=== PATIENT | female | born 1965 | race Caucasian/White ===

== ENCOUNTER 2016-08-19 18:33 | Emergency (ER) | payer OTHER ==
[~2016-08-19] VITALS: Ht 172.7 cm; Wt 82.7 kg
[~2016-08-19 18:33] MED LIST: ALLERGY RELIEF10 M1 PO; ALPRAZOLAM0.25 M2 PO; AMLODIPINE BES2.5 MG PO; ATENOLOL100 MG PO; ATENOLOL50 MG PO; AUBAGIO14 MG PO; BENADRYL25 MG PO; BUPROPION XL150 MG PO; BUSPAR30 MG PO; DESYREL100 MG PO; DULERA 100 MCG/13 GM IH; FLEXERIL10 MG PO; HYDROCHLOROTH12.5 MG PO; HYDROCODON-ACE1 EAC7 PO; INDOCIN50 MG PO; KENALOG,ARISTOC80 GM TP; LIPITOR10 MG PO; LOSARTAN POTAS100 MG PO; LOSARTAN POTASS50 MG PO; MELOXICAM7.5 MG PO; MOTRIN600 MG PO; MUPIROCIN15 GM TP; NAPROXEN500 MG PO; NEURONTIN300 MG PO; NORVASC10 MG PO; OMEPRAZOLE40 M1 PO; OXYBUTYNIN CHLOR5 M1 PO; PAXIL10 MG PO; PAXIL30 MG PO; PRILOSEC10 MG PO; SOMA350 MG PO; TYLENOL WITH C1 EACH PO; VALIUM5 MG PO; VENTOLIN HFA18 GM IH; VESICARE5 MG PO; VICODIN HP 10-1 EACH PO; WELLBUTRIN XL300 MG PO; XANAX0.5 MG PO
[2016-08-19] MEDS ORDERED: AUGMENTIN875 MG PO (19:00)
[2016-08-19 19:27] VITALS: BP 123/80
== END 2016-08-19 19:28 | disposition home or self-care (01) ==
LOC: EME 18:33
PROC: 3E0234Z Introduction of Serum, Toxoid and Vaccine into Muscle, Percutaneous Approach (ICD-10-PCS; principal; 2016-08-19)
DX: S61.052A Open bite of left thumb without damage to nail, initial encounter (principal); W53.21XA Bitten by squirrel, initial encounter; Z23 Encounter for immunization; Z72.0 Tobacco use
CPT/HCPCS: 99281; 99284

== ENCOUNTER 2016-10-10 11:46 | Emergency (ER) | payer OTHER ==
[~2016-10-10] VITALS: Ht 172.7 cm; Wt 80.8 kg
[~2016-10-10 11:46] MED LIST changes: +AUGMENTIN875 MG PO
[2016-10-10 12:47] LABS: HEMATOCRIT 42.9 % (36.0-46.0); MCH 29.6 PG (29.0-34.0); MCHC 32.2 G/DL (30.0-36.0); MCV 92.1 FL (83-99); MEAN PLAT.VOLUME 10.4 uM^3 (9.5-12.4); PLATELET COUNT 297 K/uL (156-360); RBC DIS.WIDTH-CV 13.1 % (11.8-14.6); RBC DIS.WIDTH-SD 43.8 % (39-53); RED BLOOD COUNT 4.66 M/uL (3.80-5.20); WHITE BLOOD COUNT 6.1 K/uL (4.1-10.2)
[2016-10-10 12:55] LABS: CHLORIDE 107 mEq/L (99-109); POTASSIUM 3.9 mEq/L (3.7-5.4); SODIUM 140 mEq/L (136-147)
[2016-10-10 12:57] LABS: GLUCOSE 90 mg/dL (70-99)
[2016-10-10 12:58] LABS: ANION GAP 10 MEQ/L (2-14)
[2016-10-10 13:00] LABS: GFR ESTIMATE (CALCULATED) > 59 mL/min/
[2016-10-10 13:01] LABS: UREA NITROGEN (BUN) 5 mg/dL (9-23)
[2016-10-10 13:06] LABS: TROP-I INTERPRETATION NEGATIVE; TROPONIN-I < 0.01 ng/mL (0.0-0.30)
[2016-10-10] MEDS ORDERED: AZITHROMYCIN250 MG PO (13:26)
[2016-10-10] MEDS ORDERED: HYCODAN SYRUP480 ML PO (13:26)
[2016-10-10] MEDS ORDERED: PREDNISONE20 MG PO (13:26)
[2016-10-10 13:40] VITALS: BP 138/85
== END 2016-10-10 13:41 | disposition home or self-care (01) ==
LOC: EME 11:46
DX: J20.9 Acute bronchitis, unspecified (principal); J45.909 Unspecified asthma, uncomplicated; I10 Essential (primary) hypertension; F32.9 Major depressive disorder, single episode, unspecified; G35 Multiple sclerosis; F43.10 Post-traumatic stress disorder, unspecified; F41.9 Anxiety disorder, unspecified; K21.9 Gastro-esophageal reflux disease without esophagitis; B19.20 Unspecified viral hepatitis C without hepatic coma; A69.20 Lyme disease, unspecified; F17.200 Nicotine dependence, unspecified, uncomplicated
CPT/HCPCS: 71020; 80048; 84484; 85027; 93005; 94640; 99281; 99284; J7512

== ENCOUNTER 2016-11-26 12:36 | Emergency (ER) | payer OTHER ==
[~2016-11-26] VITALS: Ht 175.3 cm; Wt 79.1 kg
[~2016-11-26 12:36] MED LIST changes: +AZITHROMYCIN250 MG PO; +HYCODAN SYRUP480 ML PO; +PREDNISONE20 MG PO
[2016-11-26] MEDS ORDERED: PERCOCET 5/31 TABLET PO (13:31)
[2016-11-26 13:52] VITALS: BP 123/77
== END 2016-11-26 13:53 | disposition home or self-care (01) ==
LOC: EME 12:36
DX: M71.22 Synovial cyst of popliteal space [Baker], left knee (principal); G35 Multiple sclerosis; A69.20 Lyme disease, unspecified; J44.9 Chronic obstructive pulmonary disease, unspecified; E78.5 Hyperlipidemia, unspecified; I10 Essential (primary) hypertension; K21.9 Gastro-esophageal reflux disease without esophagitis; F17.200 Nicotine dependence, unspecified, uncomplicated
CPT/HCPCS: 99281; 99284

== ENCOUNTER 2017-02-11 15:50 | Emergency (ER) | payer OTHER ==
[~2017-02-11] VITALS: Ht 175.3 cm; Wt 78.8 kg
[~2017-02-11 15:50] MED LIST changes: +PERCOCET 5/31 TABLET PO
[2017-02-11] MEDS ORDERED: MEDROL DOSEPAK4 MG PO (18:50)
[2017-02-11] MEDS ORDERED: [UNRECOGNIZED DRUG - SUPPLY] (18:50)
[2017-02-11] MEDS ORDERED: NORCO 5/3251 TABLET PO (18:50)
[2017-02-11 19:00] VITALS: BP 143/84
== END 2017-02-11 19:01 | disposition home or self-care (01) ==
LOC: EME 15:50
DX: M77.12 Lateral epicondylitis, left elbow (principal); I10 Essential (primary) hypertension; G35 Multiple sclerosis; F17.200 Nicotine dependence, unspecified, uncomplicated; Z88.6 Allergy status to analgesic agent
CPT/HCPCS: 73080; 99281; 99283

== ENCOUNTER 2017-06-13 11:50 | Emergency (ER) | payer OTHER ==
[~2017-06-13] VITALS: Ht 175.3 cm; Wt 77.8 kg
[~2017-06-13 11:50] MED LIST changes: +ANORO ELLIPTA1 EACH IH; +BREO ELLIPTA I1 EACH IH; +COZAAR100 MG PO; +DERMACINRX SIL1 EACH TP; +DUONEB 2.5-0.5 M3 ML AEROSOL; +INDERAL10 MG PO; -LOSARTAN POTAS100 MG PO; +MEDROL DOSEPAK4 MG PO; +NORCO 10/3251 TABLET PO; +NORCO 5/3251 TABLET PO; +PROAIR RESPICL90 MCG IH; +[UNRECOGNIZED DRUG - SUPPLY]
[2017-06-13 12:54] LABS: HEMATOCRIT 42.5 % (36.0-46.0); HEMOGLOBIN 13.8 G/DL (11.9-15.5); MCH 30.5 PG (29.0-34.0); MCHC 32.5 G/DL (30.0-36.0); PLATELET COUNT 260 K/uL (156-360); RBC DIS.WIDTH-CV 12.8 % (11.8-14.6); RBC DIS.WIDTH-SD 44.1 % (39-53); RED BLOOD COUNT 4.52 M/uL (3.80-5.20); WHITE BLOOD COUNT 6.6 K/uL (4.1-10.2)
[2017-06-13 13:10] LABS: TROP-I INTERPRETATION NEGATIVE; TROPONIN-I < 0.01 ng/mL (0.0-0.30)
[2017-06-13 13:26] LABS: CHLORIDE 104 mEq/L (99-109); POTASSIUM 4.3 mEq/L (3.7-5.4); SODIUM 141 mEq/L (136-147)
[2017-06-13 13:27] LABS: GLUCOSE 102 mg/dL (70-99)
[2017-06-13 13:31] LABS: CREATININE 0.7 mg/dL (0.6-1.3); GFR ESTIMATE (CALCULATED) > 59 mL/min/
[2017-06-13 13:32] LABS: UREA NITROGEN (BUN) 9 mg/dL (9-23)
[2017-06-13] MEDS ORDERED: ACETAMINOPHEN-1 EAC1 PO (15:27)
[2017-06-13] MEDS ORDERED: PREDNISONE20 MG PO (15:27)
[2017-06-13 16:41] VITALS: BP 109/74
== END 2017-06-13 16:43 | disposition home or self-care (01) ==
LOC: EME 11:50
DX: J44.1 Chronic obstructive pulmonary disease with (acute) exacerbation (principal); I10 Essential (primary) hypertension; B19.20 Unspecified viral hepatitis C without hepatic coma; K21.9 Gastro-esophageal reflux disease without esophagitis; G35 Multiple sclerosis; F43.10 Post-traumatic stress disorder, unspecified; F32.9 Major depressive disorder, single episode, unspecified; F41.1 Generalized anxiety disorder; F17.200 Nicotine dependence, unspecified, uncomplicated; Z88.8 Allergy status to other drugs, medicaments and biological substances
CPT/HCPCS: 71020; 80048; 84484; 85027; 93005; 99281; 99284; J7512

== ENCOUNTER 2017-07-15 15:00 | Emergency (ER) | payer OTHER ==
[~2017-07-15] VITALS: Ht 175.3 cm; Wt 79.8 kg
[~2017-07-15 15:00] MED LIST changes: +ACETAMINOPHEN-1 EAC1 PO
[2017-07-15 15:51] LABS: HEMATOCRIT 41.4 % (36.0-46.0); HEMOGLOBIN 13.8 G/DL (11.9-15.5); MCH 30.7 PG (29.0-34.0); MCHC 33.3 G/DL (30.0-36.0); PLATELET COUNT 287 K/uL (156-360); RBC DIS.WIDTH-CV 13.6 % (11.8-14.6); RBC DIS.WIDTH-SD 46.4 % (39-53); WHITE BLOOD COUNT 14.5 K/uL (4.1-10.2)
[2017-07-15 16:00] LABS: CHLORIDE 103 mEq/L (99-109); POTASSIUM 4.1 mEq/L (3.7-5.4); SODIUM 137 mEq/L (136-147)
[2017-07-15 16:02] LABS: GLUCOSE 150 mg/dL (70-99)
[2017-07-15 16:06] LABS: CREATININE 0.7 mg/dL (0.6-1.3); GFR ESTIMATE (CALCULATED) > 59 mL/min/; UREA NITROGEN (BUN) 13 mg/dL (9-23)
[2017-07-15 18:41] LABS: CARBON DIOXIDE (BICARBONATE) 32.6 MEQ/L (20-31)
[2017-07-15 19:49] VITALS: BP 117/84
== END 2017-07-15 19:51 | disposition home or self-care (01) ==
LOC: EME 15:00
PROVIDERS: Physician Assistant
DX: J70.5 Respiratory conditions due to smoke inhalation (principal); J40 Bronchitis, not specified as acute or chronic; G35 Multiple sclerosis; F17.200 Nicotine dependence, unspecified, uncomplicated; K21.9 Gastro-esophageal reflux disease without esophagitis; I10 Essential (primary) hypertension; F32.9 Major depressive disorder, single episode, unspecified; F41.9 Anxiety disorder, unspecified
CPT/HCPCS: 71046; 80048; 82803; 82810; 85027; 99281; 99284

== ENCOUNTER → 2017-08-01 | Outpatient (CLI) | payer OTHER ==
[~2017-08-01] VITALS: Ht 172.7 cm; Wt 77.1 kg
[2017-08-01 14:29] LABS: HEMATOCRIT 39.4 % (36.0-46.0); HEMOGLOBIN 12.9 G/DL (11.9-15.5); MCH 30.2 PG (29.0-34.0); MCHC 32.7 G/DL (30.0-36.0); MCV 92.3 FL (83-99); PLATELET COUNT 324 K/uL (156-360); RBC DIS.WIDTH-CV 13.4 % (11.8-14.6); RED BLOOD COUNT 4.27 M/uL (3.80-5.20); WHITE BLOOD COUNT 6.3 K/uL (4.1-10.2)
== END | disposition home or self-care (01) ==
LOC: AMB 07-25 08:00
PROVIDERS: Internal Medicine Gastroenterology
DX: R13.10 Dysphagia, unspecified (principal); K44.9 Diaphragmatic hernia without obstruction or gangrene; K29.70 Gastritis, unspecified, without bleeding; K21.9 Gastro-esophageal reflux disease without esophagitis; I10 Essential (primary) hypertension; J43.9 Emphysema, unspecified; F17.200 Nicotine dependence, unspecified, uncomplicated; B18.2 Chronic viral hepatitis C; E78.00 Pure hypercholesterolemia, unspecified; Z98.1 Arthrodesis status; Z83.3 Family history of diabetes mellitus; Z83.79 Family history of other diseases of the digestive system; Z82.49 Family history of ischemic heart disease and other diseases of the circulatory system; Z80.51 Family history of malignant neoplasm of kidney; Z80.0 Family history of malignant neoplasm of digestive organs
CPT/HCPCS: 85027; 88305; 88342 TC

== ENCOUNTER 2017-08-28 13:33 | Day surgery (SDC) | payer OTHER ==
[~2017-08-28] VITALS: Ht 174 cm; Wt 80.7 kg
[2017-08-28 13:56] VITALS: BP 110/75
[2017-08-28 17:29] VITALS: BP 125/74
[2017-08-28 18:25] VITALS: BP 108/67
== END 2017-08-28 18:40 | disposition home or self-care (01) ==
LOC: SDC 13:33
PROC: 0LN40ZZ Release Left Upper Arm Tendon, Open Approach (ICD-10-PCS; principal; 2017-08-28)
DX: M77.12 Lateral epicondylitis, left elbow (principal); G89.29 Other chronic pain; I10 Essential (primary) hypertension; J44.9 Chronic obstructive pulmonary disease, unspecified; E78.5 Hyperlipidemia, unspecified; F51.04 Psychophysiologic insomnia; Z98.1 Arthrodesis status; R25.1 Tremor, unspecified; Z86.19 Personal history of other infectious and parasitic diseases; F17.210 Nicotine dependence, cigarettes, uncomplicated; Z88.5 Allergy status to narcotic agent; Z88.8 Allergy status to other drugs, medicaments and biological substances; Z82.49 Family history of ischemic heart disease and other diseases of the circulatory system; Z83.79 Family history of other diseases of the digestive system
CPT/HCPCS: J0690; J2250; J2405; J2795; J3010; S0020